=== PATIENT | male | born 1990 | race Caucasian/White ===

== ENCOUNTER 2017-01-04 15:22 | Emergency (ER) | payer OTHER ==
[2017-01-04] MEDS ORDERED: Bacitracin Zinc 1 Packet ONE (15:56)
== END 2017-01-04 16:09 | disposition home or self-care (01) ==
LOC: BURERS 15:22
DX: S61.211A Laceration without foreign body of left index finger without damage to nail, initial encounter (principal); W45.8XXA Other foreign body or object entering through skin, initial encounter
CPT/HCPCS: 12001; J2001

== ENCOUNTER 2017-04-01 12:40 | Emergency (ER) | payer OTHER ==
[2017-04-01] MEDS ORDERED: Ibuprofen 800 MG TAB ONE (13:01)
[2017-04-01] MEDS ORDERED: traMADol HCl 50 MG TAB ONE (13:01)
== END 2017-04-01 13:06 | disposition home or self-care (01) ==
LOC: BURERS 12:40
DX: M54.41 Lumbago with sciatica, right side (principal)
CPT/HCPCS: 99283

== ENCOUNTER 2017-10-12 10:27 | Emergency (ER) | payer SELFPAY | END 2017-10-12 10:57 | disposition home or self-care (01) | LOC: BURERS 10:27 | DX: B00.9 Herpesviral infection, unspecified (principal) | CPT/HCPCS: 99283 ==